=== PATIENT | female | born 1995 | race Caucasian/White ===

== ENCOUNTER 2018-06-18 21:07 | Outpatient (REF) | payer BC, SELFPAY | END 2018-06-18 21:27 | LOC: NCHCN 21:07 | PROVIDERS: PCP Specialist/Technologist Athletic Trainer; Visit Provider Specialist/Technologist Athletic Trainer | DX: L29.8 Other pruritus (principal); Z53.8 Procedure and treatment not carried out for other reasons | CPT/HCPCS: 87480; 87510; 87660 ==

== ENCOUNTER 2018-07-05 18:10 | Outpatient (REF) | payer BC, SELFPAY ==
--- NOTE | 2018-07-05 16:10 | PAPFT_PTH ---
PATIENT: Yudith Hale LOC: [facility] U#:[id number] AGE/SX: 23/F ROOM: RE07/05/[address]: Corey Martínez : 1995 BED: DIS: 07/05/2018 SPEC #: [id number] RECD: 07/06/18 13:06 STATUS: LUIS PRICE #: [id number] MIRTA: 07/05/18 16:[address]: Corey Martínez DEPT: [facility] Cytology RECD BY: Socorro Ortiz Tissues: 1 - CX/ENDOCX FOR PAP SMEARS Procedures: PAP THIN PREP/UVM Screening HPV DNA PROBE Comments: [id number] (CHLAMYDIA/GC)
[2018-07-09 15:12] LABS: GC Result Negative; Specimen Description VAGINAL
[2018-07-09 15:16] LABS: Chlamydia Result Negative; GC Result Negative; Specimen Description SEE COMMENTS
== END 2018-07-05 18:30 ==
LOC: NCHCN 18:10
PROVIDERS: PCP Specialist/Technologist Athletic Trainer; Visit Provider Specialist/Technologist Athletic Trainer
DX: Z11.3 Encounter for screening for infections with a predominantly sexual mode of transmission (principal); Z12.4 Encounter for screening for malignant neoplasm of cervix; Z11.51 Encounter for screening for human papillomavirus (HPV); N89.8 Other specified noninflammatory disorders of vagina; R10.2 Pelvic and perineal pain; Z00.00 Encounter for general adult medical examination without abnormal findings; L29.8 Other pruritus
CPT/HCPCS: 87491; 87591; 88142; 87480; 87510; 87624; 87660

== ENCOUNTER 2021-06-28 07:28 | Emergency (ER) | payer BC, SELFPAY ==
[2021-06-28] VITALS (20 sets, daily range): BP systolic 100–118; BP diastolic 59–83; PULSE 80–117; RESP 16–25; TEMP 36.7–37; O2SAT 87–100
--- NOTE | 2021-06-28 07:45 | DI.RAD_ITS ---
Exam(s) XR HIP LT COMPLETE AP PELVIS EXAM: XR HIP LT COMPLETE AP PELVIS CLINICAL HISTORY: trauma, left hip pain. TECHNIQUE: 2D digital imaging was performed. FINDINGS: There is no evidence of pelvic nor hip fracture. No degenerative changes. No osseous lesions. Bone density is normal. Sacroiliac joints appear unremarkable. IMPRESSION: No fractures. DATA REPOSITORY: RADIATION DOSE DELIVERED:
--- NOTE | 2021-06-28 07:45 | DI.RAD_ITS ---
Exam(s) XR LUMBAR SPINE COMPLETE EXAM: XR LUMBAR SPINE COMPLETE CLINICAL HISTORY: trauma. lumbar spine pain. TECHNIQUE: 2D digital imaging was performed. COMPARISON: No exams were available for comparison FINDINGS: There is transitional anatomy with a transitional lumbosacral vertebra. No evidence of acute fracture or listhesis. No disc space narrowing. No facet malalignment. No sco liosis. Sacroiliac joints appear unremarkable. No facet arthropathy. No obvious sacral fracture. SI joints appear unremarkable. IMPRESSION: No acute osseous findings in the lumbosacral spinal column. DATA REPOSITORY: RADIATION DOSE DELIVERED:
--- NOTE | 2021-06-28 08:00 | DI.RAD_ITS ---
Exam(s) XR SACRUM COCCYX EXAM: XR SACRUM COCCYX CLINICAL HISTORY: trauma, sacral pain. TECHNIQUE: 2D digital imaging was performed. COMPARISON: No exams were available for comparison FINDINGS: No evidence of sacral fracture. Coccyx also appears intact. Sacroiliac joints appear unremarkable. IMPRESSION: No sacral fracture seen. DATA REPOSITORY: RADIATION DOSE DELIVERED:
--- NOTE | 2021-06-28 08:06 | ED.GENADUL_ITS ---
Discharge Plan Disposition Patient Disposition: HOME Condition: Improving Discharge Details Clinical Impression: Back pain, Fall, Incidental pulmonary nodule Primary Care Provider: Corey Martínez ED Provider: Ayana Bledsoe Home Meds and New Rx's Prescriptions: New cyclobenzaprine 5 mg tablet 5 mg PO TID PRN (Reason: muscle spasm) Qty: 15 RF: 0 Discharge Instructions Instructions: Cyclobenzaprine (By mouth), Low Back Strain (ED), Acute Low Back Pain (ED) Additional Instructions: Please return immediately to the emergency department if you develop any new or worsening symptoms, if your condition does not improve as expected, or if you become otherwise concerned. It is extremely important that you call soon as possible to make an appointment to be seen in follow-up for this visit by your primary care doctor. Referrals: Corey Martínez [Primary Care Provider] - Medical Decision Making Yudith Hale is a 26-year-old woman without reported history of medical problems who presented to the emergency department with lower back pain and bilateral hip pain after slipping and falling on ice yesterday afternoon. On exam patient is nontoxic-appearing but does appear uncomfortable. There is focal tenderness to palpation of the lumbar spine and sacrum in addition to lumbar paraspinal tenderness and posterior iliac crest tenderness to palpation of bilateral hips. Patient is able to range bilateral hip normally. There is no anterior lateral hip tenderness bilaterally. Bilateral lower extremities are neurovascularly intact. Concern for L-spine, sacral, or pelvis fracture. Exam/history at this time is not consistent with acute emergent intra-abdominal process, acute emergent pathology of the cervical or thoracic spine, acute emergent intracranial process, cauda equina syndrome, nontraumatic etiology of symptoms. Plan for x-rays. X-rays negative per radiology. Patient continues to report severe pain in her lower back and sacrum, also reports that pain now seems to be wrapping around into her lower pelvis bilaterally. Patient states this is the worst pain she has ever had in her life, continues to be tearful. Plan for CT for further evaluation, will place IV and give IV morphine and obtain screening labs. Labs reviewed, WBC 10.64, hemoglobin 14.9, anion gap 16.3. CT shows incidental lung nodule, no acute process. I discussed findings with Dr. Leonardo of radiology, who recommended MRI for further evaluation of the lumbar spine given trauma and point tenderness. Reassessment after morphine, patient reports that pain has improved significantly but is still present in her lower back, patient remains significantly tender to palpation at the L3-L4 lumbar spine. There is also tenderness to palpation of the left lumbar paraspinal area and sacrum. Hip nontender to palpation bilaterally at this time. No abdominal or pelvic tenderness on reassessment. Patient noted to have continued tachycardia in the 110s after 1 L IV fluid with anion gap of 16. Patient reports that she had no symptoms prior to fall yesterday, but does note that she drank rather heavily over the weekend. Patient reports that she does not drink during the week. Concern for dehydration possibly secondary to alcohol intake. Plan for second liter IV fluids, will repeat B MP after fluids completed, plan for MRI lumbar spine. Exam/history at this time is not consistent with mesenteric ischemia, ovarian torsion, PID, other gynecologic etiology of pain, epidural abscess, other infectious etiology of pain. MRI negative. Patient reporting pain improved significantly at this time feels well and able to walk without issue. Concern for possible muscle spasm as etiology of pain, plan for cyclobenzaprine. Patient reports that she feels well enough to pick a prescription and not need a dose now. Patient has a ride home. I had a discussion with Patient regarding return to emergency department precautions, home care, and importance of outpatient follow-up. Pt verbalizes understanding of the plan and is amenable. Patient discharged to home with clear plan for outpatient follow-up. All questions were answered. Disposition decision was made weighing the risks and benefits of hospitalization versus outpatient treatment, the risk for further decompensation, and the patient's wishes. Pulmonary nodule not noted in discharge instructions. I called patient after discharge and discussed incidental pulmonary nodule and need for outpatient follow-up with PCP, will need repeat imaging. Patient verbalized understanding of the importance of outpatient follow-up. All questions were answered. Patient stated that she had taken a hot shower and a cyclobenzaprine and was feeling quite well with minimal pain. Medical Records Medical records reviewed: Yes I reviewed the patient's medical records. Imaging Data Radiologic Study: Attestation: I personally reviewed and interpreted this imaging study as follows: Radiologist's impression: EXAM: CT ABDOMEN PELVIS W CLINICAL HISTORY: trauma, pelvic pain, left iliac crest pain. TECHNIQUE: Imaging Protocol: Axial computed tomography images with coronal and sagittal reformatted images were created and reviewed CONTRAST MATERIAL: Intravenous: Omnipaque 100cc Oral: None COMPARISON: CT ABD PELVIS WITH CONTRAST from 04/29/2012 FINDINGS: VISUALIZED LUNG BASES: There is 4 millimeter noncalcified nodule in left lung base (image 7). No pleural effusions. ABDOMEN: There is no ascites. LIVER: No evidence of hepatic laceration. No focal hepatic lesions. GALLBLADDER/BILIARY: No obvious gallbladder pathology. CBD is not dilated. PANCREAS: No evidence of pancreatic mass nor dilatation of the pancreatic duct. SPLEEN: Spleen size is normal. No splenic lacerations. Splenic and portal veins are patent. ADRENALS: There are no significant adrenal masses. KIDNEYS:No renal lacerations. No solid renal masses. No calculi nor hydronephrosis.. ABDOMINAL AORTA: Abdominal aorta is intact. Unremarkable. Aortoiliac segments also are intact. LYMPH NODES:There is no retroperitoneal nor paraaortic adenopathy. ABDOMINAL WALL: No evidence of significant anterior abdominal wall nor inguinal hernia. GI: There is no evidence of bowel obstruction, free air, nor abscess. PELVIS: GI: No evidence of appendicitis.No evidence of sigmoid diverticulitis. LYMPH NODES: There is no intrapelvic nor inguinal adenopathy. REPRODUCTIVE: Uterus normal. Follicular cysts are noted in the ovaries, largest measuring 11 millimeters. No free fluid. URINARY BLADDER: No calculi nor obvious masses evident OSSEOUS: No fractures evident IMPRESSION: 1. No significant trauma sequelae in the abdomen and pelvis. 2. No fractures evident 3. Incidentally noted is a 4 millimeter noncalcified nodule left lung base. Requires appropriate follow-up. 4. No evidence of significant subcutaneous bruising. EXAM: XR HIP LT COMPLETE AP PELVIS CLINICAL HISTORY: trauma, left hip pain. TECHNIQUE: 2D digital imaging was performed. FINDINGS: There is no evidence of pelvic nor hip fracture. No degenerative changes. No osseous lesions. Bone density is normal. Sacroiliac joints appear unremarkable. IMPRESSION: No fractures. EXAM: CT LUMBAR SPINE RECONS CLINICAL HISTORY: trauma, lumbar spine pain. TECHNIQUE: Imaging Protocol: Axial computed tomography images with coronal and sagittal reformatted images were created and reviewed COMPARISON: CT CT ABDOMEN PELVIS W from 06/28/2021 FINDINGS: Bones: There are no fractures, listhesis, nor pars defects. There are no lytic osseous lesions evident.Multiple small superior endplate Schmorl's node invagination is are noted as well as a limbus vertebra at the anterosuperior aspect of L3. No compression fractures. INDIVIDUAL LEVELS: T12-L1:No disc herniation nor canal stenosis. Facet joints unremarkable. No foraminal stenosis. L1-2: No disc herniation nor canal stenosis. Facet joints unremarkable. No foraminal stenosis. L2-3: No disc herniation nor canal stenosis. Facet joints unremarkable. No Foraminal stenosis L3-4: No disc herniation nor canal stenosis. Facet joints unremarkable. No foraminal stenosis. L4-5: No disc herniation nor canal stenosis. L5-S1: No disc herniation or canal stenosis. The visualized sacroiliac joints and sacrum appear unremarkable. PARASPINAL SOFT TISSUES: Visualized paraspinal tissues appear unremarkable. IMPRESSION: 1. No evidence of acute fracture, malalignment, nor acute compromise of lumbosacral spinal canal. Incidental findings as above. 2. If clinically indicated follow-up MRI can be performed. EXAM: MR LUMBAR SPINE WO CLINICAL HISTORY: trauma lumbar pain. TECHNIQUE: Multiplanar multisequence MRI of the Lumbar spine was performed. COMPARISON: CR XR LUMBAR SPINE COMPLETE from 06/28/2021 FINDINGS: Conus medullaris is at normal level. There is no evidence of conus mass nor subjacent clumping of intrathecal nerve roots to suggest arachnoiditis. The distal thecal sac appears unremarkable.There is no evidence of Tarlov intr asacral cysts nor other significant findings within the sacral canal Bones:There are no fractures nor ominous osseous lesions in the lumbar vertebral bodies and visualized sacrum. No evidence of intraosseous edema within the lumbar vertebrae nor within the sacral segments. With respect to the individual levels... T12-L1: Unremarkable L1-2: Normal disc height and signal. No disc herniation nor central canal stenosis.No foraminal stenosis L2-3: Normal disc height. No disc herniation nor central canal stenosis.No foraminal stenosis.No facet arthropathy. L3-4: Normal disc height. No disc herniation or central canal stenosis.No foraminal stenosis.No facet arthropathy. L4-5: Normal disc height and signal. No disc herniation or spinal canal stenosis. No foraminal stenosis. No significant facet arthropathy. L5-S1: No disc herniation nor central canal stenosis. No foraminal stenosis. SACRUM: No fracture. Sacral canal unremarkable. No evidence of presacral mass nor hematoma. Soft tissues: paraspinal soft tissues appear unremarkable. IMPRESSION: 1. No evidence of fractures of the lumbar vertebrae nor of the sacrum. 2. No disc herniations. No central canal stenosis. No foraminal stenosis. 3. No significant facet arthropathy in the lumbar spine. EXAM: XR LUMBAR SPINE COMPLETE CLINICAL HISTORY: trauma. lumbar spine pain. TECHNIQUE: 2D digital imaging was performed. COMPARISON: No exams were available for comparison FINDINGS: There is transitional anatomy with a transitional lumbosacral vertebra. No evidence of acute fracture or listhesis. No disc space narrowing. No facet malalignment. No scoliosis. Sacroiliac joints appear unremarkable. No facet arthropathy. No obvious sacral fracture. SI joints appear unremarkable. IMPRESSION: No acute osseous findings in the lumbosacral spinal column. EXAM: XR SACRUM COCCYX CLINICAL HISTORY: trauma, sacral pain. TECHNIQUE: 2D digital imaging was performed. COMPARISON: No exams were available for comparison FINDINGS: No evidence of sacral fracture. Coccyx also appears intact. Sacroiliac joints appear unremarkable. IMPRESSION: No sacral fracture seen. HPI General Mode of arrival: ambulatory . Date/Time Provider Initiated Documentation: 06/28/21 07:52 . Limitations to Documentation: no limitations . Information obtained by: patient, RN notes reviewed and old records reviewed . HPI Narrative: Yudith Hale is a 26-year-old woman without reported history of medical problems presenting to emergency department with lower back pain. Patient reports that a prior 4 PM last night she was walking when she slipped on ice. Patient reports that her feet went out in front of her and she landed on her buttock. Patient reports that she did hit her head lightly, did not lose consciousness, no vomiting, has had no headache. Patient reports that she had immediate pain in her midline lower back. She is able to walk home, took ibuprofen, and went to bed. Patient reports that she woke up middle of the night with severe pain in her lower back and bilateral hips. Patient reports that pain is worse with sitting down and also with walking. She denies abdominal pain, extremity pain, or any other pain, denies fevers cough, shortness of breath, vomiting, diarrhea, focal extremity weakness. Patient denies numbness other than a tingling sensation in bilateral toes this has been ongoing since she woke up early this morning. Denies constipation, changes in urinary function since injury. Patient reports that she was previously well and in her usual state of health. No prior back injuries or back problems. Related Data Home Medications Medication Instructions Recorded Confirmed cyclobenzaprine 5 mg PO TID PRN #15 tab 06/28/21 Previous Rx's Medication Instructions Recorded cyclobenzaprine 5 mg PO TID PRN #15 tab 06/28/21 Allergies Allergy/AdvReac Type Severity Reaction Status Date / Time codeine Allergy THROAT Unverified 06/28/21 07:37 SWELLS erythromycin base Allergy Unverified 06/28/21 07:37 [Erythromycin Base] General Stated Complaint: Nk/Back Pain KASH: 4 Review of Systems Narrative: Constitutional: denies fevers Eyes: denies eye pain ENT: denies ear pain, dental pain, sore throat Cardiovascular: denies chest pain Respiratory: denies SOB, cough GI: denies abdominal pain, vomiting, diarrhea : denies flank pain MSK: Reports lower back pain, bilateral hip pain, denies neck pain, other arthralgias arthralgias, myalgias Skin: denies rash Neuro:, Reports tingling bilateral toes, denies headaches, other numbness, weakness PFSH All Active Problems (Updated 06/28/21 @ 15:15 by Ayana Bledsoe MD) Back pain (Acute) Fall (Acute) Incidental pulmonary nodule (Acute) Surgical History (Updated 03/21/18 @ 14:35 by [employer] ME) Tonsillectomy (~2009) Social History Smoking/Tobacco Use Status: Current every day Tobacco Type: cigarettes Smoking risk assessment performed?: Yes Alcohol Intake: current Alcohol Intake frequency: a few times a week Alcohol type: beer Drug use: Never Substance use type: does not use Do you feel safe at home: Yes Do you feel safe in your relationship?: Yes Exam Narrative Exam Narrative: Constitutional: well and [id number] but appears uncomfortable, in tears, otherwise conversing normally HENT: head atraumatic/normocephalic/normal inspection, mucous membranes moist Eyes: conjunctiva normal, sclera normal, pupils 3mm b/l Neck: no stridor, normal painless ROM, trachea midline, no cervical spine tenderness to palpation Resp: normal work of breathing, speaking in full sentences Cardio: normal rate, normal rhythm GI: abdomen soft, non-tender, non-distended Back: normal inspection, no rash, focal tenderness to palpation at the L3-L4 level and also diffusely of the sacrum, no crepitus or deformity, bilateral tenderness to palpation of the posterior iliac crests, worse on the left, diffuse left lumbar paraspinal tenderness to palpation, no ecchymosis/skin wounds or other skin signs of trauma Skin: warm, dry, normal color, no rash Neuro: alert, not altered, grossly non-focal, normal tone, motor bilateral lower extremities 5 out of 5, normal sensation bilateral lower extremities, DP pulses intact and symmetric Ext: no edema Psych: normal mood, normal affect, normal behavior Course Vital Signs Vital signs: Vital Signs Temperature 37.0 C 06/28/21 07:33 Pulse 110 H 06/28/21 07:33 Respiratory Rate 18 06/28/21 07:33 Blood Pressure 108/83 06/28/21 07:33 Pulse Oximetry 100 06/28/21 07:33 Temperature 37.0 C 06/28/21 07:33 Temperature Source Temporal Artery Scan 06/28/21 07:33 Pulse 110 H 06/28/21 07:33 Respiratory Rate 18 06/28/21 07:33 Respiratory Effort Non-Labored 06/28/21 07:35 Blood Pressure 108/83 06/28/21 07:33 Blood Pressure Position Sitting 06/28/21 07:33 Pulse Oximetry 100 06/28/21 07:33 Oxygen Delivery Method Room Air 06/28/21 07:33 Oxygen Flow Rate 0 06/28/21 07:33 Pain Level 7 06/28/21 07:38 Lab/Test Results Lab/Test Results: POC- Test(urine) Negative PAWSS Have you Been Recently Intoxicated or Drunk Within the Last 30 days?: No Have you Ever Experienced Previous Episodes of Alcohol Withdrawal?: No Have you ever Experienced Withdrawal Seizures?: No Have you ever Experienced Delirium Tremens(DT)s?: No Have you ever undergone Alcohol Rehabilitation Treatment (i.e, inpt ot outpatient treatment programs)?: No Have you ever Experienced Blackouts?: No Have you ever Combined Alcohol with other Downers within the last 90 days?: No Have you ever Combined Alcohol with any other Substance of Abuse during the last 90 days?: No Positive Blood Alcohol level on Presentation? [PCS.BAL]: No Evidence of Increased Autonomic Activity (i.e. HR>120, tremor, sweating, agitation, nausea)?: No Result: 0
[2021-06-28 09:11] LABS: Abs Immature Grans 0.05 10^3/uL (0.0-0.06); Absolute Basophil Count 0.03 10^3/uL (0.0-0.2); Absolute Eosinophil Count 0.01 10^3/uL (0.0-0.7); Absolute Lymphocyte Count 0.24 10^3/uL (1.2-3.4); Absolute Monocyte Count 1.03 10^3/uL (0.1-0.8); Absolute Neutrophil Count 9.28 10^3/uL (1.2-6.7); Basophils % 0.3; Eosinophils % 0.1; HCT 42.7 % (36.0-46.0); HGB 14.9 g/dL (11.2-15.7); Immature Grans % 0.5; Lymphocytes % 2.3; MCH 32.8 pg (27.0-33.0); MCHC 34.9 % (32.0-36.0); MCV 94.1 fL (80-95); Monocytes % 9.7; Neutrophils % 87.1; Nucleated RBC 0 %; Platelet Count 243 10^3/uL (130-400); RBC 4.54 10^6/uL (3.93-5.22); RDW 11.6 % (11.7-14.6); RDW-SD 39.9 fL; WBC 10.64 10^3/uL (4.4-10.8)
[2021-06-28] MEDS: MORPHine 4 MG/ML SYR IVP (09:11)
[2021-06-28] MEDS: Omnipaque 350 MG/ML 100 ML BTL IJ (09:15)
--- NOTE | 2021-06-28 09:21 | DI.CT_ITS ---
Exam(s) CT ABDOMEN PELVIS W EXAM: CT ABDOMEN PELVIS W CLINICAL HISTORY: trauma, pelvic pain, left iliac crest pain. TECHNIQUE: Imaging Protocol: Axial computed tomography images with coronal and sagittal reformatted images were created and reviewed CONTRAST MATERIAL: Intravenous: Omnipaque 100cc Oral: None COMPARISON: CT ABD PELVIS WITH CONTRAST from 04/29/2012 FINDINGS: VISUALIZED LUNG BASES: There is 4 millimeter noncalcified nodule in left lung base (image 7). No ple ural effusions. ABDOMEN: There is no ascites. LIVER: No evidence of hepatic laceration. No focal hepatic lesions. GALLBLADDER/BILIARY: No obvious gallbladder pathology. CBD is not dilated. PANCREAS: No evidence of pancreatic mass nor dilatation of the pancreatic duct. SPLEEN: Spleen size is normal. No splenic lacerations. Splenic and portal veins are patent. ADRENALS: There are no significant adrenal masses. KIDNEYS:No renal lacerations. No solid renal masses. No calculi nor hydronephrosis.. ABDOMINAL AORTA: Abdominal aorta is intact. Unremarkable. Aortoiliac segments also are intact. LYMPH NODES:There is no retroperitoneal nor paraaortic adenopathy. ABDOMINAL WALL: No evidence of significant anterior abdominal wall nor inguinal hernia. GI: There is no evidence of bowel obstruction, free air, nor abscess. PELVIS: GI: No evidence of appendicitis.No evidence of sigmoid diverticulitis. LYMPH NODES: There is no intrapelvic nor inguinal adenopathy. REPRODUCTIVE: Uterus normal. Follicular cysts are noted in the ovaries, largest measuring 11 millime ters. No free fluid. URINARY BLADDER: No calculi nor obvious masses evident OSSEOUS: No fractures evident IMPRESSION: 1. No significant trauma sequelae in the abdomen and pelvis. 2. No fractures evident 3. Incidentally noted is a 4 millimeter noncalcified nodule left lung base. Requires appropriate fol low-up. 4. No evidence of significant subcutaneous bruising. RADIATION DOSE DELIVERED: Total DLP DATA REPOSITORY: All CT scans at this facility are submitted to the National Radiology Data Registry (NRDR) Dose Index Registry (DIR) with the [employer] (A[employer]). RADIATION OPTIMIZATION: All CT scans at this facility use at least one of these dose optimization te chniques: automated exposure control; mA and/or kV adjustment per patient size (includes targeted exa ms where dose is matched to clinical indication); or iterative reconstruction.
[2021-06-28] MEDS: Normal Saline 1,000 ML 1000 ML IV ×2 (09:24→10:44)
[2021-06-28 09:27] LABS: ALT 37 U/L (14-59); AST 81 U/L (15-37); Albumin 4.8 g/dL (3.4-5.0); Alkaline Phosphatase 55 U/L (46-116); Anion Gap 16.3 mmol/L (3-11); BUN 12 mg/dL (7-18); Bilirubin, Total 0.9 mg/dL (0.2-1.0); CO2 22.7 mmol/L (21.0-32.0); Calcium 10.2 mg/dL (8.5-10.1); Chloride 96 mmol/L (98-107); Glucose 97 mg/dL (74-106); Potassium 3.6 mmol/L (3.5-5.1); Sodium 135 mmol/L (136-145); Total Protein 8.5 g/dL (6.4-8.2)
--- NOTE | 2021-06-28 09:28 | DI.CT_ITS ---
Exam(s) CT LUMBAR SPINE RECONS EXAM: CT LUMBAR SPINE RECONS CLINICAL HISTORY: trauma, lumbar spine pain. TECHNIQUE: Imaging Protocol: Axial computed tomography images with coronal and sagittal reformatted images were created and reviewed COMPARISON: CT CT ABDOMEN PELVIS W from 06/28/2021 FINDINGS: Bones: There are no fractures, listhesis, nor pars defects. There are no lytic osseous lesions evide nt.Multiple small superior endplate Schmorl's node invagination is are noted as well as a limbus vert ebra at the anterosuperior aspect of L3. No compression fractures. INDIVIDUAL LEVELS: T12-L1:No disc herniation nor canal stenosis. Facet joints unremarkable. No foraminal stenosis. L1-2: No disc herniation nor canal stenosis. Facet joints unremarkable. No foraminal stenosis. L2-3: No disc herniation nor canal stenosis. Facet joints unremarkable. No Foraminal stenosis L3-4: No disc herniation nor canal stenosis. Facet joints unremarkable. No foraminal stenosis. L4-5: No disc herniation nor canal stenosis. L5-S1: No disc herniation or canal stenosis. The visualized sacroiliac joints and sacrum appear unremarkable. PARASPINAL SOFT TISSUES: Visualized paraspinal tissues appear unremarkable. IMPRESSION: 1. No evidence of acute fracture, malalignment, nor acute compromise of lumbosacral spinal canal. In cidental findings as above. 2. If clinically indicated follow-up MRI can be performed. RADIATION DOSE DELIVERED: Total DLP DATA REPOSITORY: All CT scans at this facility are submitted to the National Radiology Data Registry (NRDR) Dose Index Registry (DIR) with the [employer] (ACR). RADIATION OPTIMIZATION: All CT scans at this facility use at least one of these dose optimization te chniques: automated exposure control; mA and/or kV adjustment per patient size (includes targeted exa ms where dose is matched to clinical indication); or iterative reconstruction.
--- NOTE | 2021-06-28 09:45 | DI.MRI_ITS ---
Exam(s) MR LUMBAR SPINE WO EXAM: MR LUMBAR SPINE WO CLINICAL HISTORY: trauma lumbar pain. TECHNIQUE: Multiplanar multisequence MRI of the Lumbar spine was performed. COMPARISON: CR XR LUMBAR SPINE COMPLETE from 06/28/2021 FINDINGS: Conus medullaris is at normal level. There is no evidence of conus mass nor subjacent clumping of in trathecal nerve roots to suggest arachnoiditis. The distal thecal sac appears unremarkable.There is no evidence of Tarlov intrasacral cysts nor other significant findings within the sacral canal Bones:There are no fractures nor ominous osseous lesions in the lumbar vertebral bodies and visualize d sacrum. No evidence of intraosseous edema within the lumbar vertebrae nor within the sacral segmen ts. With respect to the individual levels... T12-L1: Unremarkable L1-2: Normal disc height and signal. No disc herniation nor central canal stenosis.No foraminal steno sis L2-3: Normal disc height. No disc herniation nor central canal stenosis.No foraminal stenosis.No face t arthropathy. L3-4: Normal disc height. No disc herniation or central canal stenosis.No foraminal stenosis.No face t arthropathy. L4-5: Normal disc height and signal. No disc herniation or spinal canal stenosis. No foraminal sten osis. No significant facet arthropathy. L5-S1: No disc herniation nor central canal stenosis. No foraminal stenosis. SACRUM: No fracture. Sacral canal unremarkable. No evidence of presacral mass nor hematoma. Soft tissues: paraspinal soft tissues appear unremarkable. IMPRESSION: 1. No evidence of fractures of the lumbar vertebrae nor of the sacrum. 2. No disc herniations. No central canal stenosis. No foraminal stenosis. 3. No significant facet arthropathy in the lumbar spine. DATA REPOSITORY:
[2021-06-28 13:07] LABS: Anion Gap 10.3 mmol/L (3-11); BUN 9 mg/dL (7-18); CO2 22.7 mmol/L (21.0-32.0); CREATININE 0.8 mg/dL (0.55-1.02); Calcium 7.7 mg/dL (8.5-10.1); Chloride 103 mmol/L (98-107); Glucose 85 mg/dL (74-106); Potassium 3.7 mmol/L (3.5-5.1); Sodium 136 mmol/L (136-145)
== END 2021-06-28 14:21 | disposition home or self-care (01) ==
PROVIDERS: Emergency Provider Student in an Organized Health Care Education/Training Program; PCP Specialist/Technologist Athletic Trainer
DX: M54.50 Low back pain, unspecified (principal); M25.551 Pain in right hip; M25.552 Pain in left hip; M53.3 Sacrococcygeal disorders, not elsewhere classified; R10.2 Pelvic and perineal pain; W00.0XXA Fall on same level due to ice and snow, initial encounter; R91.1 Solitary pulmonary nodule
CPT/HCPCS: 80048; 80053; 81025; 96361; 96374; 96375; 99285; 72110; 72148; 72220; 73502; 74177; 85025; 99284; J2270; J3490

== ENCOUNTER 2021-09-20 15:01 | Outpatient (REF) | payer BC, SELFPAY ==
[2021-09-20 20:08] LABS: TSH (W/Ref FT4) 1.16 uIU/mL (0.36-3.74)
== END 2021-09-20 15:02 | disposition home or self-care (01) ==
LOC: NCHCN 15:01
PROVIDERS: PCP Specialist/Technologist Athletic Trainer; Visit Provider Nurse Practitioner Family
DX: N92.6 Irregular menstruation, unspecified (principal); N89.8 Other specified noninflammatory disorders of vagina
CPT/HCPCS: 84443; 87480; 87510; 87660

== ENCOUNTER → 2021-12-28 02:17 | Outpatient (CLI) | payer BC, SELFPAY | PROVIDERS: PCP Nurse Practitioner Family; Visit Provider Obstetrics & Gynecology ==

== ENCOUNTER 2022-03-25 07:41 | Emergency (ER) | payer BC, SELFPAY ==
[2022-03-25 07:48] VITALS: BP 114/80; PULSE 85; RESP 18; TEMP 36.9; O2SAT 100
--- NOTE | 2022-03-25 08:11 | ED.GENADUL_ITS ---
Discharge Plan Disposition Patient Disposition: HOME Condition: Improving Discharge Details Clinical Impression: Finger laceration Primary Care Provider: Shamika Tony ED Provider: Joao Johnson Home Meds and New Rx's Prescriptions: Continued omeprazole 40 mg capsule,delayed release(DR/EC) 40 mg PO DAILY Discharge Instructions Instructions: Finger Laceration (ED) Additional Instructions: Laceration repaired without difficulty. Keep the area clean and dry, change dressing daily, wear splint to avoid tearing open the repaired laceration. Rest, elevate, cool and/or warm compresses every 2 hours for 20 minutes. [id number] Tylenol and/or Motrin as directed for discomfort. Please watch for new or worsening symptoms and return to the ER for any concerns. Please have your sutures removed in approximately 10 days. Medical Decision Making This is a 27-year-old female, [id number], presents having sustained a hand laceration at work just prior to arrival. Tetanus status up-to-date. No signs of foreign body or active bleeding. No crush injury. No clear indication to obtain x-ray. Laceration appropriately cleaned, repaired, dressed and splinted Standard discharge and return precautions were provided. Patient understands, is agreeable to this plan, and has no additional questions or concerns upon discharge. This documentation was generated using [employer] dictation system, please disregard any oddities of phrase or misspellings. Medical Records Medical records reviewed: Yes I reviewed the patient's medical records. HPI General Mode of arrival: ambulatory . Date/Time Provider Initiated Documentation: 03/25/22 08:00 . Limitations to Documentation: no limitations . Information obtained by: patient . History of Present Illness 27 year old F presents to the emergency department with the chief complaint of R hand lac, described as mild, with intensity rated at 3. Quality is described as aching, and is localized to the right and upper extremity. Patient reports no radiation. Patient started experiencing this hour(s) (1) and it has been constant. Immobilization improves symptom(s), Movement worsens symptoms . Patient notes no other symptoms.. Patient did receive the following treatments prior to arrival, none Related Data Home Medications Medication Instructions Recorded Confirmed omeprazole 40 mg capsule,delayed 40 mg PO DAILY 10/11/21 03/25/22 release Allergies Allergy/AdvReac Type Severity Reaction Status Date / Time codeine Allergy THROAT Unverified 10/11/21 15:37 SWELLS erythromycin base Allergy Unverified 10/11/21 15:37 [Erythromycin Base] General Stated Complaint: Laceration KASH: 4 Review of Systems Constitutional Constitutional: Denies weakness Musculoskeletal Musculoskeletal: Denies arthralgias, Denies numbness, Denies stiffness and Denie s tingling Integumentary/Breasts Skin/Breast: Denies erythema Neurologic Neurologic: Denies numbness, Denies tingling and Denies weakness PFSH All Active Problems (Updated 03/25/22 @ 08:40 by ARLET Barclay) Finger laceration (Acute) Oligomenorrhea (Acute) Surgical History Tonsillectomy (~2009) Social History Smoking/Tobacco Use Status: Current every day Smoking risk assessment performed?: Yes Alcohol Intake: current Alcohol Intake frequency: a few times a week Alcohol type: beer Substance use type: marijuana current occupation: [employer] Sexually active: Yes Do you think of yourself as: straight/heterosexual Current gender identity: female Do you feel safe at home: Yes Do you feel safe in your relationship?: Yes History History 0 Para Hx # Term Pregnancies Multiple births Hx # Pregnancies Ectopic pregnancies AB induced Hx Number of Living Children AB spontaneous Exam Const General: cooperative, healthy appearing, comfortable and no acute distress Orientation: alert and awake HENMT Head: normal to inspection, normocephalic and atraumatic Eyes Conjunctivae: conjunctivae normal Neck Neck: normal visual inspection, trachea midline and supple Resp Effort & Inspection: normal respiratory effort and able to speak in complete sentences Cardio Rate: regular rate Rhythm: regular rhythm Skin General skin exam: no rashes or lesions noted Neuro General: patient alert, patient awake, moves all extremities and no focal motor deficits Cognition: normal cognition Speech: speech normal Gait: normal gait Motor: muscle tone normal throughout Sensory Exam: no sensory deficits noted Extrem General: full ROM and capillary refill normal Hand/finger images: 1. Well approximated 2 cm laceration. No active bleeding. Mild diffuse discomfort. Neuro, vascular, tendon intact. 5-5 strength. Capillary refill normal. Psych Appearance: grossly normal Mental Status: mental status grossly normal Course Vital Signs Vital signs: Vital Signs Temperature 36.9 C 03/25/22 07:48 Pulse 85 03/25/22 07:48 Respiratory Rate 18 03/25/22 07:48 Blood Pressure 114/80 03/25/22 07:48 Pulse Oximetry 100 03/25/22 07:48 Temperature 36.9 C 03/25/22 07:48 Temperature Source Temporal Artery Scan 03/25/22 07:48 Pulse 85 03/25/22 07:48 Respiratory Rate 18 03/25/22 07:48 Respiratory Effort Non-Labored 03/25/22 07:50 Blood Pressure 114/80 03/25/22 07:48 Blood Pressure Position Sitting 03/25/22 07:48 Pulse Oximetry 100 03/25/22 07:48 Oxygen Delivery Method Room Air 03/25/22 07:48 Oxygen Flow Rate 0 03/25/22 07:48 Pain Level 5 03/25/22 08:07 Procedures Laceration Laceration 1: Site: hand Side (If applicable): right Size (cm): 2 Description: linear and clean Depth: simple, single layer Local Anesthetic: Lidocaine 1%, Bupivicaine 0.5% and other anesthetic ([id number] mixture) Amount of anesthesia used (mL): 4 Pre-repair: wound explored, irrigated extensively and deep structures intact Skin layer closed with: nylon Size (cm): 4-0 Number of sutures: 3 Technique: simple, interrupted
[2022-03-25] MEDS: Lidocaine 1% Multi-Dose 20 ML VIAL (08:41)
== END 2022-03-25 08:48 | disposition home or self-care (01) ==
PROVIDERS: Emergency Provider Physician Assistant; PCP Nurse Practitioner Family
DX: S61.210A Laceration without foreign body of right index finger without damage to nail, initial encounter (principal); X58.XXXA Exposure to other specified factors, initial encounter; Y99.0 Civilian activity done for income or pay
CPT/HCPCS: 12001; 99281; 99282; J3490